=== PATIENT | male | born 1975 | race Caucasian/White ===

== ENCOUNTER 2016-07-13 06:43 | Inpatient (IN) | payer MEDICARE ==
[2016-07-02 16:30] LABS: WBC (NOT ORDERED) (RFLEX) 0 (0-5)
[2016-07-02 17:05] LABS: ASCORBIC ACID (UR NOT ORDER) 20 (NEG); BILIRUBIN, URINE NEGATIVE (NEG); KETONE, URINE NEGATIVE (NEG); LEUKOCYTE ESTERASE(NOT OR NEG (NEG)
[2016-07-02 17:11] LABS: BASOPHILS 0.2 %; BASOPHILS ABSOLUTE 0.01 10/3/uL (0.0-0.16); EOSINOPHILS 2.4 %; EOSINOPHILS ABSOLUTE 0.14 10/3/uL (0.0-0.53); HEMATOCRIT 44.9 % (40.0-51.0); HEMOGLOBIN 16.4 g/dL (13.6-17.8); IMMATURE GRANULOCYTES 0.3 %; IMMATURE GRANULOCYTES ABSOLUTE 0.02 10/3/uL (0.0-0.11); LYMPHOCYTES 42.9 %; LYMPHOCYTES ABSOLUTE 2.49 10/3/uL (0.67-4.30); MEAN CORPUS HGB CONC 36.5 g/dL (32.0-36.0); MEAN CORPUSCULAR HEMOGLOB 32.2 pg (26.0-34.0); MEAN CORPUSCULAR VOLUME 88.2 fL (80-100); MEAN PLATELET VOLUME 10.1 fL (9.2-13.0); MONOCYTES 7.7 %; MONOCYTES ABSOLUTE 0.45 10/3/uL (0.21-1.20); NEUTROPHILS 46.5 %; PLATELET COUNT 189 10/3/uL (150-400); RBC DISTRIBUTION WIDTH 12.9 % (12.0-16.0); RED CELL COUNT 5.09 10/6/uL (4.7-6.1); WHITE BLOOD CELLS 5.8 10/3/uL (4.5-10.5)
[2016-07-02 17:12] LABS: MANUAL DIFF NO %
[2016-07-02 17:19] LABS: INTERNATIONAL NORMAL RATI 1.2 UNITS (-); PROTIME (NOT ORD) 14.7 SEC (12.0-14.5)
[2016-07-02 17:43] LABS: % IRON SAT 30 % (20-50); A/G RATIO 1.6 (0.7-1.9); ALBUMIN 4.4 G/DL (3.5-5.0); ALKALINE PHOSPHATASE 80 U/L (45-117); BUN (BLOOD UREA NITROGEN) 16 MG/DL (6-23); CALCIUM, SERUM 9.2 MG/DL (8.5-10.4); CHLORIDE, SERUM 105 MMOL/L (96-112); CO2 (CARBON DIOXIDE) 29 MMOL/L (24-34); CREATININE 0.98 MG/DL (0.70-1.30); GFR AFRICAN AMERICAN 110 ML/MIN (>=60); GFR NON AFRICAN AMERICAN 95 ML/MIN (>=60); GLOBULIN 2.8 G/DL (2.5-4.1); GLUCOSE, SERUM 93 MG/DL (60-99); IRON BINDING CAPACITY 321 MCG/DL (250-450); IRON, SERUM 95 MCG/DL (35-150); SGOT(AST) 26 U/L (5-40); SGPT(ALT) 25 U/L (5-65); SODIUM, SERUM 142 MMOL/L (135-148); TOTAL BILIRUBIN 0.6 MG/DL (0-1.2); TOTAL PROTEIN 7.2 G/DL (6.0-8.5)
--- NOTE | ~2016-07-13 | OP ---
Record Of Operation [facility] [address] [place]. [address] NAME: EKVIN NORMAN : 73 STATUS : ADM IN PAT#: [id number] AGE: 41 ADM/REG DATE : 07/13/16 MR#: [id number] REPORT SERV DATE: 07/16/16 DICTATED BY: JOHN GARCIA DATE: 07/16/16 REPORT STATUS : Draft TRANSCRIBED BY: MODL DATE: 07/16/16 DATE OF PROCEDURE: 07/13/2016 PREOPERATIVE DIAGNOSES: 1. Aortic valve insufficiency with bicuspid aortic valve. 2. Ascending aortic aneurysm. 3. Autism. 4. Dilated cardiomyopathy. POSTOPERATIVE DIAGNOSES: 1. Aortic valve insufficiency with bicuspid aortic valve. 2. Ascending aortic aneurysm. 3. Autism. 4. Dilated cardiomyopathy. PROCEDURE PERFORMED: 1. Bentall procedure using a 29 mm Magna Ease pericardial valve and a 32 mm Valsalva Dacron graft. Reimplantation of coronaries. 2. Transesophageal echocardiography. SURGEON: John Garcia M.D. ASSISTANTS: Meme Pruett RN and CHAD Lizarraga. ANESTHESIA: General, Haider Gan M.D. FLYING SHEAR OPERATOR: Juliana Taylor M.D. INDICATIONS: This is a 41-year-old gentleman, who has a sociable form of autism. in dining area. He was seen by his primary care physician recently for mild fatigue symptoms and had a murmur that was noted. He underwent an echocardiogram that demonstrated significant aortic valve insufficiency with a bicuspid aortic valve and dilated ascending aorta. He was also noted to have mildly dilated left ventricle and atrium. LVEDP was elevated at 34. The patient underwent a cardiac catheterization, which did not demonstrate any significant coronary artery disease. We were asked to see the patient for possible aortic root and ascending aortic replacement for aneurysm and bicuspid insufficient valve. We discussed this operation at length with the patient and his family and after discussing the operations, indication, and risks, they wished to proceed. STS predicted risk of mortality for aortic valve replacement less than 1%, and morbidity mortality less than 10%. FINDINGS AT OPERATION: 1. Cross-clamp time 131 minutes, total pump time 151 minutes. 2. The aortic valve was bicuspid. There were 3 commissural post with fusion of the right and left coronary cusps. 3. Left main was large and was low lying in the sinus. The right coronary was nondominant Record Of Operation [facility] [address] [place]. [address] NAME: KEVIN NORMAN : 73 STATUS : ADM IN PAT#: [id number] AGE: 41 ADM/REG DATE : 07/13/16 MR#: [id number] REPORT SERV DATE: 07/16/16 DICTATED BY: JOHN GARCIA DATE: 07/16/16 REPORT STATUS : Draft TRANSCRIBED BY: MODL DATE: 07/16/16 and was high in the coronary sinus. 4. We used a composite graft including the 32 mm Gelweave Valsalva graft. The 29 mm pericardial Magna ease valve was placed into the Valsalva end of the graft and secured in place with a 5-0 Prolene suture. 5. We replaced the ascending aorta up to 1 cm proximal to the innominate artery takeoff. No circulatory arrest was performed. 6. Transesophageal echocardiography demonstrated good ventricular function with a dilated left ventricle. The aortic prosthesis was well seated without perivalvular leak at the end of the operation. There was mild mitral valve insufficiency noted at the conclusion of the procedure. PATHOLOGIC SPECIMENS: Include ascending aorta and aortic valve leaflets and aortic root. DESCRIPTION OF PROCEDURE: The patient was brought to the operating suite where general anesthesia was induced. Airway secured with an endotracheal tube. Lines secured by Anesthesia. Lynn catheter was placed. The patient's chest, abdomen, groin, and legs prepped with Hibiclens and ChloraPrep and draped with Ioban sterile sheets. JESUS probe was placed by Dr. Gan and examination carried out demonstrating significant ascending aortic dilatation with severely insufficient aortic valve that was bicuspid. Ventricular function appeared to be low normal with ejection fraction 45% to 50%. A midline sternal incision was made and the sternum opened with a saw. Lines were passed from the field for cardiopulmonary bypass and cleared of air. Heparin was administered by Anesthesia. The pericardium was opened from the innominate vein. The diaphragm was T'd and tacked to the side of the chest wall. Cannulation pursestring suture were placed in the ascending aorta within the arch and right atrium. Cannulation was carried out in routine manner. Two stage venous cannula was placed. When all was in readiness, the patient was placed on cardiopulmonary bypass. We dissected out the ascending aorta once this was completed, the aorta was crossclamped. Initial dose of cold blood cardioplegia solution was given in a combination of antegrade and directly down the coronary ostia with the hand-held administration set. We gave approximately a liter and half of Custodiol solution. During the first dose cardioplegia, an LV vent was placed through right superior pulmonary vein and directed into the left ventricle through the mitral valve and secured. Once the aorta was opened, inspection allowed us to see both right and left main coronary ostia and we completed initial and only dose of cardioplegia solution. Following the first dose of cardioplegia of the heart, the ascending aorta was transected at the level of the sinotubular junction. The aortic root was inspected with asymmetrical dilatation especially in the noncoronary sinus. The left main coronary ostia were low in the sinus. We then excised the aortic valve leaflets, they were heavily calcified, it was a bicuspid valve. The coronary sinuses were then excised and coronary buttons for the right and left main coronary ostia were preserved. After the annulus was debrided of all calcific material, the annulus and left ventricle were irrigated copiously with iced saline to remove any particulate matter. The valve was sized Record Of Operation [facility] [address] [facility] [place]. [address] NAME: KEVIN NORMAN : 73 STATUS : ADM IN PAT#: [id number] AGE: 41 ADM/REG DATE : 07/13/16 MR#: [id number] REPORT SERV DATE: 07/16/16 DICTATED BY: JOHN GARCIA DATE: 07/16/16 REPORT STATUS : Draft TRANSCRIBED BY: MODL DATE: 07/16/16 and a 29 mm Magna Ease pericardial valve was selected. We then selected a 32 mm Gelweave Valsalva graft. The pericardial valve was inserted into the Valsalva end of the graft and sewn into the Dacron material with a running suture of 5-0 Prolene. Next, interrupted pledgeted sutures 2-0 Tycron placed circumferentially about the aortic valve annulus with the pledgets on the ventricular side. The sutures were then passed through the Valsalva graft and the sewing cuff of the prosthetic valve. This was lowered into position and each sutures individually secured and divided using a Cor-Knot device. Valve appeared to be well seated. We then turned our attention towards the coronary buttons. The left main coronary button was addressed first. This was up to the left sinus of Valsalva on the graft. This area was excised using I cautery. The left coronary button was then sewn to the hole in the Valsalva graft with a running suture of 6-0 Prolene. This suture line was reinforced with Otilio felt. Then, the right coronary button was brought to the right coronary sinus portion of the Valsalva graft and matched up. This portion of the graft was excised using I-cautery. The right coronary button was then sewn to the Valsalva portion of the graft with a running suture of 6-0 Prolene, it was buttressed with a felt. Once this portion of the procedure was completed, the graft was distended with a senior care solution and demonstrated good filling of the right and left main coronary ostia with no external leaks from the sutures. The distal end of the ascending aorta was transected just proximal to the aortic cross clamp, which was about 1 to 2 cm proximal to the takeoff of the innominate artery. The 32 mm Dacron graft was trimmed and sewn in end-to-end fashion to the remaining portion of the ascending aorta with a running suture of 4-0 Prolene. This suture line was buttressed with another felt strip. The patient was placed in Trendelenburg and the ascending aorta and left ventricle de-aired. When this was accomplished, the aortic cross-clamp was removed. The heart was allowed to rest on cardiopulmonary bypass, but did resume a normal sinus rhythm eventually. Ventilations were begun. When the heart demonstrated good contractility, it was allowed to fill and eject. De-airing was monitored with JESUS. When deairing was completed, the LV vent was removed and these pursestring sutures tied. The patient was weaned from cardiopulmonary bypass with minimal inotropic support. The venous cannula was removed and these pursestring sutures tied. JESUS examination demonstrated good functioning ventricle. The aortic valve prosthesis was well seated without perivalvular leak. There was mild mitral insufficiency as seen at the beginning of the operation. Protamine was administered by Anesthesia and following a period of hemodynamic stability, the aortic cannula was removed and these pursestring sutures tied and reinforced. The patient continued to do well and chest irrigated copiously with saline. Meticulous Record Of Operation [facility] [id number] [facility] [place]. [address] NAME: KEVIN NORMAN : 73 STATUS : ADM IN PAT#: [id number] AGE: 41 ADM/REG DATE : 07/13/16 MR#: [id number] REPORT SERV DATE: 07/16/16 DICTATED BY: JOHN GARCIA DATE: 07/16/16 REPORT STATUS : Draft TRANSCRIBED BY: MODL DATE: 07/16/16 hemostasis was obtained. Hemasorb was placed along the cut edge of the sternum. Once hemostasis was assured, the pericardium was draped over the anterior surface of the heart and tacked into position. Chest tubes were placed and the sternum reapproximated with 8 sternal wires. The clavipectoral fascia and linea alba closed #1 Stratafix. The subcutaneous tissue was closed with Stratafix and the skin closed in subcuticular fashion. The patient tolerated the procedure well no complications. Sponge and needle counts were correct. DISPOSITION: The patient left intubated, sedated, and transported to the intensive care unit in stable condition. REGINE/GLENIS John Garcia M.D. / [id number] CC: Tejinder Dexter MD Lisa Gail Carkner, M.D.
--- NOTE | ~2016-07-13 | DS ---
Discharge Summary [facility] [address] [place]. [address] NAME: KEVIN NORMAN : 73 STATUS : DIS IN PAT#: [id number] AGE: 41 ADM/REG DATE : 07/13/16 MR#: [id number] REPORT SERV DATE: 08/12/16 DICTATED BY: JOHN GARCIA DATE: 08/11/16 REPORT STATUS : Draft TRANSCRIBED BY: MODBertha DATE: 08/11/16 Data Collection from hospitalization DISCHARGE DIAGNOSES: 1. Aortic valve insufficiency with bicuspid aortic valve, status post Bentall procedure. 2. Ascending aortic aneurysm. 3. Autism. 4. Dilated cardiomyopathy. CONSULTATION: Dr. Juliana Taylor. PROCEDURES PERFORMED: Bentall procedure using a 29 mm Magna Ease pericardial valve and 32 mm Valsalva-Dacron graft; reimplantation of coronaries; transesophageal echocardiography, 07/13/2016. PATHOLOGY: Aortic valve-fibrosis and multinodular calcifications, portion of aorta- atherosclerosis, minimal. MEDICATIONS: Vitamin C 1000 mg twice a day, aspirin 81 mg daily, Lipitor as instructed, BuSpar 10 mg twice a day, vitamin D 1000 units daily, Dovray 5/325 one to two tablets every four hours as needed, Jantoven 2.5 mg at bedtime. CONDITION AT DISCHARGE: Stable. DISPOSITION: The patient was discharged home on an 1800-calorie cardiac/diabetic diet with activities as instructed. He would follow up with Samir Emmanuel, 08/10/[address] Juliana Taylor, 08/10/2016. He would follow up at cardiac rehab, 08/04/2016. He would follow up at [facility] for an INR check, 07/20/2016 and at the [place] office for an echocardiogram, 07/30/2016. HOSPITAL COURSE: This is a 41-year-old man, who has a sociable form of autism. He had been seen by his primary care physician recently for mild fatigue symptoms and a murmur was noted. He had undergone an echocardiogram that demonstrated significant aortic valve insufficiency with a bicuspid aortic valve and dilated ascending aorta. He was also noted to have mildly dilated left ventricle and atrium. Left ventricular end-diastolic pressure was elevated at 34. He underwent a cardiac catheterization, which did not demonstrate any significant coronary artery disease. We had seen the patient regarding possible aortic root and ascending aortic replacement for aneurysm and bicuspid insufficient valve. Treatment options were discussed and it was elected to proceed with surgical intervention. He was admitted to the hospital at this time for further evaluation and treatment. Upon admission, he was taken to the operating room, where he underwent the above-mentioned procedure. He tolerated this well and there were no complications. On postop day #1, he was awake and alert. He was conversant. He did complain of pain. His incisions looked okay. He had no edema. He was seen by Dr. Juliana Taylor. He had no shortness of breath. His lungs were clear. He had no edema. White count was 8.1. On 07/15/2016, he said he was feeling better. His abdomen was soft and nontender. Pacing wires were intact. His current therapy continued. He had no chest pain. His pain was well controlled. Metoprolol was Discharge Summary [address] [address] NAME: KEVIN NORMAN : 73 STATUS : DIS IN PAT#: [id number] AGE: 41 ADM/REG DATE : 07/13/16 MR#: [id number] REPORT SERV DATE: 08/12/16 DICTATED BY: JOHN GARCIA DATE: 08/11/16 REPORT STATUS : Draft TRANSCRIBED BY: GLENIS DATE: 08/11/16 increased. Aspirin and atorvastatin were continued. It was felt that he would need anticoagulation for three months after pacing wires were pulled and the chest tube was out. On 07/16/2016, he felt well. He did have some dyspnea walking to the bathroom. White count was 12.8. Metoprolol, atorvastatin, and aspirin were continued. Jantoven was started. His chest tube was removed. Over the next couple of days, he continued to do well. Discharge planning was performed. He had some abdominal pain, which resolved. Blood pressure was well controlled. On 07/19/2016, he was in a sinus rhythm. He felt well. He had had a low- grade fever overnight, which resolved. He was alert and cooperative. Discharge instructions were given. Due to his improved and stable condition, he was discharged home with the above-stated instructions. Information collected by: Fiona Gee I submit the above information as my discharge summary. AMPARO/MODL John Garcia M.D. / [id number] CC: Tejinder Dexter MD Lisa Gail Carkner, M.D.
[~2016-07-13 06:43] MED LIST: BUSPAR10 PO; FISH OIL PO; MULTI VIT PO; VITAMIN D1000 UNI1 PO
[2016-07-13 14:33] LABS: BE (BASE EXCESS) -6.2 MEQ/L (0 +/- 2.5); CARBOXYHEMOGLOBIN 0.4 % (0-3); HCO3 (ACTUAL BICARBONATE) 19.2 MEQ/L (23-27); HEMOBLOGIN CONTENT 15.4 G/DL (14-18); INSTRUMENT SERIAL # 11843; METHEMOGLOBIN 0.7 % (0-3); MODE SIMV; O2 CONTENT 22.4 VOL% (18-24); OPERATOR ID 18642; PCO2 (CO2 TENSION) 38 MMHG (35-45); PO2 (O2 TENSION) 452 MMHG (79-93); PRESSURE SUPPORT 0 cm.H2O; SAMPLE Arterial; TIDAL VOLUME 700 ML; pH 7.32 (7.37-7.43)
[2016-07-13 14:44] LABS: HEMATOCRIT 40.5 % (40.0-51.0); HEMOGLOBIN 14.3 g/dL (13.6-17.8)
[2016-07-13 14:45] LABS: PLATELET COUNT 121 10/3/uL (150-400)
[2016-07-13 14:51] LABS: INTERNATIONAL NORMAL RATI 1.9 UNITS (-); PARTIAL THROMBO TIME 32.1 SEC (22.5-37.2)
[2016-07-13 14:52] LABS: PROTIME (NOT ORD) 21.4 SEC (12.0-14.5)
[2016-07-13 14:56] LABS: BUN (BLOOD UREA NITROGEN) 17 MG/DL (6-23); CHLORIDE, SERUM 110 MMOL/L (96-112); CREATININE 1.08 MG/DL (0.70-1.30); GFR AFRICAN AMERICAN 98 ML/MIN (>=60); GFR NON AFRICAN AMERICAN 84 ML/MIN (>=60); POTASSIUM, SERUM 4.7 MMOL/L (3.5-5.3); SODIUM, SERUM 139 MMOL/L (135-148)
[2016-07-13 15:00] LABS: CALCIUM, SERUM 7.7 MG/DL (8.5-10.4); CO2 (CARBON DIOXIDE) 22 MMOL/L (24-34); GLUCOSE, SERUM 165 MG/DL (60-99)
[2016-07-13 18:48] LABS: HEMATOCRIT 38.9 % (40.0-51.0)
[2016-07-13 18:48] LABS: CARBOXYHEMOGLOBIN 0.5 % (0-3); DEVICE NC; HEMOBLOGIN CONTENT 14.7 G/DL (14-18); INSTRUMENT SERIAL # 11843; METHEMOGLOBIN 0.6 % (0-3); O2 CONTENT 20.4 VOL% (18-24); OPERATOR ID 18642; PCO2 (CO2 TENSION) 42 MMHG (35-45); PO2 (O2 TENSION) 157 MMHG (79-93); SAMPLE Arterial; pH 7.31 (7.37-7.43)
[2016-07-13 18:57] LABS: POTASSIUM, SERUM 4.1 MMOL/L (3.5-5.3)
[2016-07-14 01:25] LABS: HEMATOCRIT 36.6 % (40.0-51.0); HEMOGLOBIN 13.3 g/dL (13.6-17.8)
[2016-07-14 01:34] LABS: POTASSIUM, SERUM 4.3 MMOL/L (3.5-5.3)
[2016-07-14 03:28] LABS: BASOPHILS 0 %; EOSINOPHILS 0 %; HEMATOCRIT 36.5 % (40.0-51.0); HEMOGLOBIN 13.1 g/dL (13.6-17.8); IMMATURE GRANULOCYTES 0.1 %; IMMATURE GRANULOCYTES ABSOLUTE 0.01 10/3/uL (0.0-0.11); LYMPHOCYTES 9.4 %; LYMPHOCYTES ABSOLUTE 0.76 10/3/uL (0.67-4.30); MEAN CORPUS HGB CONC 35.9 g/dL (32.0-36.0); MEAN CORPUSCULAR HEMOGLOB 31.9 pg (26.0-34.0); MEAN CORPUSCULAR VOLUME 88.8 fL (80-100); MEAN PLATELET VOLUME 9.6 fL (9.2-13.0); MONOCYTES 5.7 %; MONOCYTES ABSOLUTE 0.46 10/3/uL (0.21-1.20); NEUTROPHILS 84.8 %; NEUTROPHILS ABSOLUTE 6.83 10/3/uL (2.02-8.40); PLATELET COUNT 122 10/3/uL (150-400); RED CELL COUNT 4.11 10/6/uL (4.7-6.1); WHITE BLOOD CELLS 8.1 10/3/uL (4.5-10.5)
[2016-07-14 03:31] LABS: MANUAL DIFF NO %
[2016-07-14 03:34] LABS: INTERNATIONAL NORMAL RATI 1.5 UNITS (-); PROTIME (NOT ORD) 18.2 SEC (12.0-14.5)
[2016-07-14 03:43] LABS: BUN (BLOOD UREA NITROGEN) 19 MG/DL (6-23); CALCIUM, SERUM 8.3 MG/DL (8.5-10.4); CHLORIDE, SERUM 113 MMOL/L (96-112); CREATININE 0.87 MG/DL (0.70-1.30); GFR AFRICAN AMERICAN 123 ML/MIN (>=60); GFR NON AFRICAN AMERICAN 106 ML/MIN (>=60); GLUCOSE, SERUM 99 MG/DL (60-99); POTASSIUM, SERUM 4.2 MMOL/L (3.5-5.3)
[2016-07-14 03:46] LABS: CO2 (CARBON DIOXIDE) 27 MMOL/L (24-34); SODIUM, SERUM 146 MMOL/L (135-148)
[2016-07-14 13:12] LABS: HEMATOCRIT 36.9 % (40.0-51.0); HEMOGLOBIN 13.3 g/dL (13.6-17.8)
[2016-07-15 05:58] LABS: BASOPHILS 0 %; EOSINOPHILS 0 %; HEMATOCRIT 36.3 % (40.0-51.0); HEMOGLOBIN 13.2 g/dL (13.6-17.8); IMMATURE GRANULOCYTES 0.2 %; IMMATURE GRANULOCYTES ABSOLUTE 0.03 10/3/uL (0.0-0.11); LYMPHOCYTES ABSOLUTE 1.91 10/3/uL (0.67-4.30); MEAN CORPUS HGB CONC 36.4 g/dL (32.0-36.0); MEAN CORPUSCULAR HEMOGLOB 32.5 pg (26.0-34.0); MEAN CORPUSCULAR VOLUME 89.4 fL (80-100); MEAN PLATELET VOLUME 10.3 fL (9.2-13.0); MONOCYTES 9.4 %; NEUTROPHILS 75.4 %; NEUTROPHILS ABSOLUTE 9.61 10/3/uL (2.02-8.40); PLATELET COUNT 132 10/3/uL (150-400); RBC DISTRIBUTION WIDTH 13.1 % (12.0-16.0); RED CELL COUNT 4.06 10/6/uL (4.7-6.1)
[2016-07-15 06:02] LABS: MANUAL DIFF NO %; WHITE BLOOD CELLS 12.8 10/3/uL (4.5-10.5)
[2016-07-15 06:11] LABS: BUN (BLOOD UREA NITROGEN) 18 MG/DL (6-23); CALCIUM, SERUM 8.7 MG/DL (8.5-10.4); CHLORIDE, SERUM 100 MMOL/L (96-112); CO2 (CARBON DIOXIDE) 30 MMOL/L (24-34); CREATININE 0.83 MG/DL (0.70-1.30); GFR AFRICAN AMERICAN 126 ML/MIN (>=60); GFR NON AFRICAN AMERICAN 109 ML/MIN (>=60); GLUCOSE, SERUM 131 MG/DL (60-99); SODIUM, SERUM 137 MMOL/L (135-148)
[2016-07-16 07:04] LABS: BASOPHILS 0.1 %; BASOPHILS ABSOLUTE 0.01 10/3/uL (0.0-0.16); EOSINOPHILS 0.3 %; EOSINOPHILS ABSOLUTE 0.03 10/3/uL (0.0-0.53); HEMATOCRIT 38.3 % (40.0-51.0); HEMOGLOBIN 13.7 g/dL (13.6-17.8); IMMATURE GRANULOCYTES 0.2 %; IMMATURE GRANULOCYTES ABSOLUTE 0.02 10/3/uL (0.0-0.11); LYMPHOCYTES 19.1 %; LYMPHOCYTES ABSOLUTE 1.86 10/3/uL (0.67-4.30); MEAN CORPUS HGB CONC 35.8 g/dL (32.0-36.0); MEAN CORPUSCULAR HEMOGLOB 32.2 pg (26.0-34.0); MEAN CORPUSCULAR VOLUME 89.9 fL (80-100); MONOCYTES 9.8 %; MONOCYTES ABSOLUTE 0.96 10/3/uL (0.21-1.20); NEUTROPHILS 70.5 %; NEUTROPHILS ABSOLUTE 6.88 10/3/uL (2.02-8.40); PLATELET COUNT 138 10/3/uL (150-400); RED CELL COUNT 4.26 10/6/uL (4.7-6.1); WHITE BLOOD CELLS 9.8 10/3/uL (4.5-10.5)
[2016-07-16 07:06] LABS: MANUAL DIFF NO %
[2016-07-16 07:10] LABS: CALCIUM, SERUM 9.1 MG/DL (8.5-10.4); CHLORIDE, SERUM 100 MMOL/L (96-112); CO2 (CARBON DIOXIDE) 33 MMOL/L (24-34); CREATININE 0.82 MG/DL (0.70-1.30); GFR AFRICAN AMERICAN 126 ML/MIN (>=60); GFR NON AFRICAN AMERICAN 109 ML/MIN (>=60); GLUCOSE, SERUM 122 MG/DL (60-99); POTASSIUM, SERUM 3.8 MMOL/L (3.5-5.3); SODIUM, SERUM 137 MMOL/L (135-148)
[2016-07-16 07:12] LABS: BUN (BLOOD UREA NITROGEN) 13 MG/DL (6-23)
[2016-07-17 05:27] LABS: INTERNATIONAL NORMAL RATI 1.2 UNITS (-); PROTIME (NOT ORD) 15.2 SEC (12.0-14.5)
[2016-07-18 06:53] LABS: PROTIME (NOT ORD) 22.3 SEC (12.0-14.5)
[2016-07-19 05:54] LABS: BASOPHILS 0.3 %; BASOPHILS ABSOLUTE 0.03 10/3/uL (0.0-0.16); EOSINOPHILS ABSOLUTE 0.22 10/3/uL (0.0-0.53); HEMATOCRIT 38.7 % (40.0-51.0); HEMOGLOBIN 13.7 g/dL (13.6-17.8); IMMATURE GRANULOCYTES 1.8 %; LYMPHOCYTES 18.3 %; LYMPHOCYTES ABSOLUTE 1.99 10/3/uL (0.67-4.30); MEAN CORPUS HGB CONC 35.4 g/dL (32.0-36.0); MEAN CORPUSCULAR HEMOGLOB 31.5 pg (26.0-34.0); MEAN PLATELET VOLUME 9.7 fL (9.2-13.0); MONOCYTES 10.2 %; MONOCYTES ABSOLUTE 1.11 10/3/uL (0.21-1.20); NEUTROPHILS 67.4 %; NEUTROPHILS ABSOLUTE 7.34 10/3/uL (2.02-8.40); RBC DISTRIBUTION WIDTH 13.2 % (12.0-16.0); RED CELL COUNT 4.35 10/6/uL (4.7-6.1); WHITE BLOOD CELLS 10.9 10/3/uL (4.5-10.5)
[2016-07-19 05:56] LABS: MANUAL DIFF NO %; PLATELET COUNT 220 10/3/uL (150-400)
[2016-07-19 06:11] LABS: PROTIME (NOT ORD) 22.8 SEC (12.0-14.5)
[2016-07-19] MEDS ORDERED: ASAB PO (09:41)
[2016-07-19] MEDS ORDERED: VITC500 PO (09:41)
[2016-07-19] MEDS ORDERED: LIPITOR40 PO (09:42)
[2016-07-19] MEDS ORDERED: NORCO1 TA1 PO (09:42)
[2016-07-19] MEDS ORDERED: JANTOVEN3 MG PO (09:43)
== END 2016-07-19 13:03 | disposition home or self-care (01) | DRG 220 ==
LOC: SDC/OF 06:43 → CVICU 12:35 → 5NO 07-14 16:32
PROVIDERS: Internal Medicine; Thoracic Surgery (Cardiothoracic Vascular Surgery)
PROC: 02RF08Z Replacement of Aortic Valve with Zooplastic Tissue, Open Approach (ICD-10-PCS; principal; 2016-07-13 08:30)
PROC: 02RX0JZ Replacement of Thoracic Aorta, Ascending/Arch with Synthetic Substitute, Open Approach (ICD-10-PCS; 2016-07-13 08:30)
PROC: B246ZZ4 Ultrasonography of Right and Left Heart, Transesophageal (ICD-10-PCS; 2016-07-13 08:30)
DX: Q23.1 Congenital insufficiency of aortic valve (principal); F84.0 Autistic disorder; I42.0 Dilated cardiomyopathy; I71.2 Thoracic aortic aneurysm, without rupture; I10 Essential (primary) hypertension
CPT/HCPCS: 36415; 71010; 71020; 80048; 80053; 81001; 82330; 82803; 82805; 82947; 82962; 83036; 83540; 83550; 83735; 84132; 84295; 85014; 85018; 85025; 85049; 85347; 85610; 85730; 86850; 86900; 86901; 86920; 87641; 88305; 88311; 93005; 93312; 93320; 93325; 94002; 94640; 94660; 94770; A9270-GY; C1713; C1768; J0690; J1644; J2150; J2250; J2370; J2405; J2440; J2597; J2720; J2795; J2930; J3010; J3370; J3475; P9045

== ENCOUNTER 2016-07-30 19:59 | Inpatient (IN) | payer MEDICARE, OTHER ==
--- NOTE | ~2016-07-30 | DS ---
Discharge Summary [facility] [address] [place]. [address] NAME: KEVIN NORMAN : 73 STATUS : DIS IN PAT#: [id number] AGE: 41 ADM/REG DATE : 07/30/16 MR#: [id number] REPORT SERV DATE: 08/20/16 DICTATED BY: JOHN GARCIA DATE: 08/19/16 REPORT STATUS : Draft TRANSCRIBED BY: MODBertha DATE: 08/19/16 Data Collection from hospitalization DISCHARGE DIAGNOSES: 1. Typical atrial flutter. 2. Large pericardial effusion, status post pericardial window. 3. Autism spectrum disorder. 4. History of aortic root aneurysm. 5. Bicuspid aortic valve. 6. Aortic insufficiency. 7. Dilated cardiomyopathy with ejection fraction 50%. CONSULTATIONS: Christiano Guerrero MD PROCEDURES PERFORMED: Pericardial window with drainage of pericardial effusion - bloody, synchronous cardioversion, transesophageal echocardiography on 08/02/2016. MEDICATIONS: Vitamin C 500 mg daily, aspirin 81 mg daily, Lipitor 40 mg at bedtime, BuSpar 10 mg twice a day, vitamin D 1000 units daily, Home 5/325 one tablet twice a day as needed, Lopressor 50 mg twice a day, and Jantoven 3.5 mg every evening. CONDITION AT DISCHARGE: Stable. DISPOSITION: The patient was discharged home on a regular diet with activities as instructed. He would follow up with Samir Emmanuel on 09/16/[address] Juliana Taylor on 08/31/2016. He would follow up at the [facility] on 08/10/2016. HOSPITAL COURSE: This is a 41-year-old man who has a history of thoracic aortic aneurysm and aortic insufficiency. He is status post aortic root replacement/aortic valve replacement with reimplantation of coronary artery disease. The patient was seen by Dr. Christiano Guerrero regarding his pericardial effusion. The large pericardial effusion was found on a followup echocardiogram, this had been performed electively at [facility] on the day of this admission. This was apparently a new finding. There was no evidence of cardiac tamponade, however, the patient was found to be in atrial flutter. He was informed to present to the emergency room for further workup. He did complain of some atypical chest pain, but on further questioning, this seemed to simply be residual sternotomy pain. He said that he had no trouble breathing and that he felt good at this time. He was admitted to the hospital at this time for further evaluation and treatment. Upon admission, the effusion was felt to demonstrate fibrinous material consistent with an exudative process. Left ventricular ejection fraction was calculated at 45%. There was a stable aortic bioprosthetic valve with normal valve gradients and no significant regurgitation. Repeat echocardiogram was requested. This would be a limited study to evaluate for any progression of the patient's effusion. Given the presence of atrial flutter, Coumadin was continued. The patient's INR rate was subtherapeutic at this time. It was felt that bleeding was an unlikely cause of the effusion given the subtherapeutic INR and evidence of exudative process. The patient's home medication regimen for atrial flutter was continued. Should the patient not spontaneously convert, we would consider Discharge Summary [address] [place]. [address] NAME: KEVIN NORMAN : 73 STATUS : DIS IN PAT#: [id number] AGE: 41 ADM/REG DATE : 07/30/16 MR#: [id number] REPORT SERV DATE: 08/20/16 DICTATED BY: JOHN GARCIA DATE: 08/19/16 REPORT STATUS : Draft TRANSCRIBED BY: GLENIS DATE: 08/19/16 transesophageal echocardiography and DC cardioversion. The following day, an echocardiogram was performed. He had no chest pain or shortness of breath. Extra Coumadin was given that day for his subtherapeutic INR. Metoprolol was increased. Diltiazem drip was going to be started if necessary for heart rate greater than 120 beats per minute. INR level was 1.5. On 08/01/2016, he had no shortness of breath, dizziness, or chest pain. INR level was 1.7. He had no edema. There was no evidence of tamponade. It was felt that we may need to perform transesophageal echocardiogram and DC cardioversion. He had a moderate effusion on echo. INR level was stable at 1.7. He was going to be held n.p.o. Coumadin was held. He had his rate controlled in the 100s on metoprolol. On 08/02/2016, it was felt that the patient should undergo pericardial window, drainage of effusion and possible cardioversion. This was discussed with the patient and his family, and they wanted to proceed. He was taken to the operating room where he underwent the above-mentioned procedure. He tolerated this well, and there were no complications. On 08/03/2016, the patient was doing well. His drain remained in place. He was in a normal sinus rhythm at this time. Coumadin was going to be resumed. He was a little sore at the drain site, otherwise, he had no complaints. The following day, he felt well. Discharge planning was performed. He was going to be given some senna and Colace for constipation. His Coumadin was continued. The pericardial drain was removed. INR level was 1.9. He remained in a normal sinus rhythm. On 08/05/2016, he was in good spirits. His lungs were clear. His incisions looked okay. He had no edema. He remained afebrile. He had no chest pain or shortness of breath. Discharge instructions were given. Due to his improved and stable condition, he was discharged home with the above-stated instructions. Information collected by: Fiona Gee I submit the above information as my discharge summary. TG/MODL John Garcia M.D. / [id number] CC: MD Arcenio Barnett MD
--- NOTE | ~2016-07-30 | HP ---
History And Physical [address] [address] [facility] [place]. [address] NAME: KEVIN NORMAN : 73 STATUS : ADM IN [facility]#: [id number] AGE: 41 ADM/REG DATE : 07/30/16 MR#: [id number] REPORT SERV DATE: 07/31/16 DICTATED BY: JAVON GUERRERO DATE: 07/30/16 REPORT STATUS : Draft TRANSCRIBED BY: MODL DATE: 07/30/16 DATE OF ADMISSION: 07/30/2016 CARDIOLOGY ADMISSION HISTORY AND PHYSICAL IDENTIFYING DATA: The patient is a 41-year-old man with a history of thoracic aortic aneurysm and aortic insufficiency with status post aortic root replacement/aortic valve replacement with reimplantation of coronary arteries. CHIEF COMPLAINT: The patient is electively admitted after a large pericardial effusion was found on a followup echocardiogram. HISTORY OF PRESENT ILLNESS: Mr. Norman is a pleasant 41-year-old man who has an advanced autistic disorder. For this reason, he is unable to perform much in the way of usual history. The patient's family is present however and does provide some of the history. The patient apparently had an echocardiogram performed electively today at [facility]. A large circumferential pericardial effusion was noted. This is apparently a new finding. There is no evidence of cardiac tamponade, however, the patient was noted to be in atrial flutter. He was, therefore, informed to present to the emergency room for further workup. The patient was complaining of some atypical chest pain, though on further questioning, this seems to be simply residual sternotomy pain. The patient reports that he is having no trouble breathing and that he "feels good" at this time. The patient's surgery was performed on 07/16/2016. The patient, otherwise, has recovered without incident. PAST MEDICAL HISTORY: 1. Aortic root aneurysm. 2. Autism spectrum disorder. 3. Bicuspid aortic valve. 4. Aortic insufficiency. 5. Dilated cardiomyopathy with ejection fraction of 50%. PAST SURGICAL HISTORY: Significant for aortic root replacement and aortic valve replacement as noted above. The patient has no previous history of cardiac dysrhythmia. FAMILY HISTORY: The patient's father of myocardial infarction at age 50. The mother has a history of cardiac dysrhythmias, not otherwise specified. Family history is otherwise noncontributory. SOCIAL HISTORY: The patient has no significant history of tobacco, alcohol, or drug use. ALLERGIES: THE PATIENT HAS NO KNOWN MEDICATION ALLERGIES. HOME MEDICATIONS: 1. Vitamin C 500 mg p.o. daily. 2. Aspirin 81 mg p.o. daily. 3. Atorvastatin 40 mg p.o. at q.h.s. History And Physical [address] [address] NAME: KEVIN NORMAN : 73 STATUS : ADM IN PAT#: [id number] AGE: 41 ADM/REG DATE : 07/30/16 MR#: [id number] REPORT SERV DATE: 07/31/16 DICTATED BY: JAVON GUERRERO DATE: 07/30/16 REPORT STATUS : Draft TRANSCRIBED BY: GLENIS DATE: 07/30/16 4. BuSpar 10 mg p.o. twice daily. 5. Vitamin D 1000 units p.o. daily. 6. Hydrocodone/acetaminophen 5/325 mg one tablet twice daily as needed for pain. 7. Metoprolol tartrate 25 mg p.o. twice daily. 8. Coumadin 3 mg p.o. q.h.s. REVIEW OF SYSTEMS: The patient is unable to provide a meaningful review of systems. PHYSICAL EXAMINATION: VITAL SIGNS: Temperature is 99.2 degrees Fahrenheit, blood pressure is 132/74 mmHg, heart rate is 93 beats per minute and regularly irregular, respirations 16, and oxygen saturation is 95% on room air. GENERAL: The patient is a short white man who is in no acute distress. The patient is not grossly oriented or has limited ability to communicate effectively. However, he is otherwise alert and appropriate. EYES: PERRL, EOMI, clear conjunctiva. HEAD/MNT: NCAT with moist mucous membranes and grossly normal hard and soft palate. NECK: Supple with no obvious thyromegaly or lymphadenopathy CARDIOVASCULAR: There is a regularly irregular rhythm with a normal S1 and a physiologically split second heart sound. There is a grade 1-2/6 early peaking systolic murmur noted at the right upper sternal border. The jugular venous pressure is at the upper limit of normal at 7-8 cm. PULMONARY: Clear to auscultation bilaterally with no wheezing, rales, rhonchi or dullness percussion. ABDOMINAL: Soft, non-tender, non-distended with no hepatosplenomegaly noted. EXTREMITIES: No clubbing, cyanosis or edema. MUSCULOSKELETAL: Grossly normal strength and range of motion in all extremities INTEGUMENTARY: Skin appears intact with no bruises, wounds or active lesions noted NEURO/PSYC: Alert and oriented x3, with no dysarthria, facial droop or lateralizing weakness noted. DIAGNOSTIC DATA: 12-lead EKG: The 12-lead EKG shows atrial flutter with variable AV block. ECG criteria for LVH are present. There are nonspecific ST/T-wave abnormalities. Ventricular rate is 106 beats per minute. LABORATORY: White blood cell count is 7.0, hemoglobin 12, hematocrit 36, platelets 466. INR is 1.5. PTT is 41. Chemistry shows a sodium of 140, potassium 3.2, chloride is 105, CO2 28, BUN 11, creatinine 0.85, and glucose is 91. Troponin I 0.1 and total CK is 75. ASSESSMENT AND PLAN: 1. Pericardial effusion: The patient's echocardiogram report documents no echocardiographic evidence of pericardial effusion. The effusion demonstrates fibrinous material consistent with an exudative process. Left ventricular ejection fraction is calculated at 45%. There is a stable aortic bioprosthetic valve with normal valve gradients and no significant regurgitation. A repeat echocardiogram will be obtained tomorrow. This will be a limited study to evaluate for any progression of History And Physical [address] [address] NAME: KEVIN NORMAN : 73 STATUS : ADM IN [facility]#: [id number] AGE: 41 ADM/REG DATE : 07/30/16 MR#: [id number] REPORT SERV DATE: 07/31/16 DICTATED BY: JAVON GUERRERO DATE: 07/30/16 REPORT STATUS : Draft TRANSCRIBED BY: MODL DATE: 07/30/16 the patient's effusion. We will discuss this case with Thoracic Surgery. Given the presence of atrial flutter, I would prefer to continue Coumadin. The patient's INR at any rate is subtherapeutic at this time. I feel that bleeding is an unlikely cause of the effusion given the subtherapeutic INR and evidence of an exudative of process. We will discuss with Thoracic Surgery whether any further workup would be recommended. For now, the patient will be monitored clinically. He demonstrates no clinical or echocardiographic evidence of cardiac tamponade. 2. Atrial flutter: We will continue the patient's home medication regimen. Should the patient not spontaneously convert, we will consider transesophageal echocardiography and DC cardioversion on Tuesday. MICKIE/GLENIS Javon Guerrero MD / [id number] CC: MD Arcenio Barnett MD
--- NOTE | ~2016-07-30 | OP ---
Record Of Operation [facility] [address] [place]. [address] NAME: JOSE NORMAN : 73 STATUS : ADM IN PAT#: [id number] AGE: 41 ADM/REG DATE : 07/30/16 MR#: [id number] REPORT SERV DATE: 08/02/16 DICTATED BY: JOHN GARCIA DATE: 08/02/16 REPORT STATUS : Draft TRANSCRIBED BY: MODBertha DATE: 08/02/16 DATE OF PROCEDURE: 08/02/2016 PREOPERATIVE DIAGNOSES: 1. Large pericardial effusion after recent open heart surgery. 2. Atrial flutter. 3. History of autism. POSTOPERATIVE DIAGNOSES: 1. Large pericardial effusion after recent open heart surgery. 2. Atrial flutter. 3. History of autism. PROCEDURE PERFORMED: 1. Pericardial window with drainage of pericardial effusion, bloody. 2. Synchronous cardioversion. 3. Transesophageal echocardiography. UNDERWRITING SERVICE REPRESENTATIVE: David Dong. ANESTHESIA: General. ANESTHESIOLOGIST: Mp Lopez M.D. COUNTY DIRECTOR: Juliana Taylor M.D. INDICATIONS: Jose is a 41-year-old gentleman who has a social form of autism. He has been having increasing fatigue and underwent an evaluation demonstrating dilated ascending aorta and also heart murmur that showed significant aortic insufficiency. Cardiac catheterization did not demonstrate any coronary artery disease. Ventricular function was preserved. He underwent uncomplicated Bentall procedure on 07/16/2016 and did well. He was anticoagulated, as he had a tissue valve placed. He went home and returned with a large pericardial effusion, who had echocardiography done and confirming this. Plan was to discontinue his Coumadin and electively performed pericardial window. Unfortunately, the patient then developed atrial flutter and fib with some fast ventricular response. He was admitted to the hospital, anticoagulated, and we were notified about the patient on Tuesday evening. The patient went to Cardiology, and we saw the patient this morning. I talked with Dr. Taylor and felt the patient undergo pericardial window, drainage of effusion, and possible cardioversion. This was discussed with the patient and his family and they wished to proceed. FINDINGS: 1. About 400 mL of bloody pericardial effusion were removed. 2. Cardioversion was performed with 350 joules of energy in the sync mode. 3. JESUS demonstrated good ventricular function. There was no aortic insufficiency of the aortic valve and there was no left atrial clot seen in the left atrial appendage. Record Of Operation [facility] [address] [place]. [address] NAME: JOSE NORMAN : 73 STATUS : ADM IN PAT#: [id number] AGE: 41 ADM/REG DATE : 07/30/16 MR#: [id number] REPORT SERV DATE: 08/02/16 DICTATED BY: JOHN GARCIA DATE: 08/02/16 REPORT STATUS : Draft TRANSCRIBED BY: GLENIS DATE: 08/02/16 PATHOLOGIC SPECIMENS: Pericardial effusion. DESCRIPTION OF PROCEDURE: The patient was brought to the operating suite, where general anesthesia was induced. Airway was secured with an endotracheal tube. Lines were secured by Anesthesia. The patient's chest and abdomen were prepped with Hibiclens and ChloraPrep and draped with Ioban sterile sheets. Cardioversion external paddles were placed on the patient's chest. JESUS probe was placed by Dr. Lopez and examination was carried out. This demonstrated a large pericardial effusion that was circumferential. He also had a good ventricular function and aortic root replacement with a prosthetic aortic valve with no insufficiency. Left atrial appendage did not demonstrate any clot. Upper midline incision was performed through the lower portion of his sternal incision and carried onto the linea alba for several centimeters. This was carried through subcutaneous tissue and linea alba was divided in the midline up to the costal margin. Left costal margin was then elevated. We dissected behind the costal margin until we came upon the pericardium. Here, a small hole was made in the pericardium and a large amount of bloody fluid was removed. 400 mL was removed and some of this was sent for cultures. The pericardial space was then irrigated copiously with saline. Once it irrigated clear, a 19-mm Gonzales drain was placed in the posterior pericardial space and brought out through a separate stab incision. Then, the linea alba was closed in layers with StrataFix and StrataFix in the subcutaneous tissue and skin was closed in subcuticular fashion. During this procedure, the patient was cardioverted using 350 joules of energy in a synchronized mode. This was successful and the patient resumed a normal sinus rhythm. DISPOSITION: The patient was sent to the recovery room in stable condition, extubated. REGINE/GLENIS John Garcia M.D. / [id number] CC: Christiano Guerrero MD
[2016-07-30 17:38] LABS: BASOPHILS 0.1 %; BASOPHILS ABSOLUTE 0.01 10/3/uL (0.0-0.16); EOSINOPHILS 1.7 %; EOSINOPHILS ABSOLUTE 0.12 10/3/uL (0.0-0.53); ER CBC TAT 0 Hrs 10 Mins; HEMATOCRIT 35.7 % (40.0-51.0); HEMOGLOBIN 12.3 g/dL (13.6-17.8); IMMATURE GRANULOCYTES 0.3 %; IMMATURE GRANULOCYTES ABSOLUTE 0.02 10/3/uL (0.0-0.11); MEAN CORPUS HGB CONC 34.5 g/dL (32.0-36.0); MEAN CORPUSCULAR VOLUME 87.1 fL (80-100); MEAN PLATELET VOLUME 8.4 fL (9.2-13.0); MONOCYTES 6.4 %; MONOCYTES ABSOLUTE 0.45 10/3/uL (0.21-1.20); NEUTROPHILS 61.5 %; NEUTROPHILS ABSOLUTE 4.29 10/3/uL (2.02-8.40); RBC DISTRIBUTION WIDTH 12.9 % (12.0-16.0)
[2016-07-30 17:39] LABS: MANUAL DIFF NO %; PLATELET COUNT 466 10/3/uL (150-400)
[2016-07-30 17:45] LABS: INTERNATIONAL NORMAL RATI 1.5 UNITS (-)
[2016-07-30 17:46] LABS: PARTIAL THROMBO TIME 40.5 SEC (22.5-37.2); PROTIME (NOT ORD) 18.2 SEC (12.0-14.5)
[2016-07-30 17:51] LABS: BUN (BLOOD UREA NITROGEN) 11 MG/DL (6-23); CALCIUM, SERUM 8.8 MG/DL (8.5-10.4); CHLORIDE, SERUM 105 MMOL/L (96-112); CREATININE 0.85 MG/DL (0.70-1.30); GFR AFRICAN AMERICAN 125 ML/MIN (>=60); GFR NON AFRICAN AMERICAN 107 ML/MIN (>=60); POTASSIUM, SERUM 3.6 MMOL/L (3.5-5.3); SODIUM, SERUM 140 MMOL/L (135-148)
[2016-07-30 17:52] LABS: CO2 (CARBON DIOXIDE) 28 MMOL/L (24-34)
[2016-07-30 17:53] LABS: CHEST PAIN PROFILE TAT 0 Hrs 25 Mins; GLUCOSE, SERUM 91 MG/DL (60-99)
[2016-07-30 19:05] LABS: CPK 75 U/L (0-200)
[2016-07-30 19:06] LABS: CK-MB 0.8 NG/ML
[~2016-07-30 19:59] MED LIST changes: +ASAB PO; +JANTOVEN3 MG PO; +LIPITOR40 PO; +NORCO1 TA1 PO; +VITC500 PO
[2016-07-30] MEDS ORDERED: LOP25 PO (20:27)
[2016-07-31 06:56] LABS: BASOPHILS 0.1 %; BASOPHILS ABSOLUTE 0.01 10/3/uL (0.0-0.16); EOSINOPHILS 0.3 %; EOSINOPHILS ABSOLUTE 0.02 10/3/uL (0.0-0.53); HEMATOCRIT 33.5 % (40.0-51.0); HEMOGLOBIN 11.4 g/dL (13.6-17.8); IMMATURE GRANULOCYTES 0.3 %; IMMATURE GRANULOCYTES ABSOLUTE 0.02 10/3/uL (0.0-0.11); LYMPHOCYTES 17.7 %; LYMPHOCYTES ABSOLUTE 1.22 10/3/uL (0.67-4.30); MEAN CORPUSCULAR HEMOGLOB 29.5 pg (26.0-34.0); MEAN CORPUSCULAR VOLUME 86.6 fL (80-100); MEAN PLATELET VOLUME 8.5 fL (9.2-13.0); MONOCYTES ABSOLUTE 0.48 10/3/uL (0.21-1.20); NEUTROPHILS 74.6 %; NEUTROPHILS ABSOLUTE 5.15 10/3/uL (2.02-8.40); PLATELET COUNT 439 10/3/uL (150-400); RED CELL COUNT 3.87 10/6/uL (4.7-6.1); WHITE BLOOD CELLS 6.9 10/3/uL (4.5-10.5)
[2016-07-31 06:57] LABS: MANUAL DIFF NO %
[2016-07-31 07:05] LABS: BUN (BLOOD UREA NITROGEN) 8 MG/DL (6-23); CALCIUM, SERUM 8.7 MG/DL (8.5-10.4); CHLORIDE, SERUM 106 MMOL/L (96-112); CO2 (CARBON DIOXIDE) 29 MMOL/L (24-34); CREATININE 0.69 MG/DL (0.70-1.30); GFR AFRICAN AMERICAN 136 ML/MIN (>=60); GFR NON AFRICAN AMERICAN 117 ML/MIN (>=60); GLUCOSE, SERUM 100 MG/DL (60-99); POTASSIUM, SERUM 3.7 MMOL/L (3.5-5.3); SODIUM, SERUM 141 MMOL/L (135-148)
[2016-07-31 07:06] LABS: INTERNATIONAL NORMAL RATI 1.6 UNITS (-)
[2016-08-01 07:19] LABS: INTERNATIONAL NORMAL RATI 1.7 UNITS (-); PROTIME (NOT ORD) 20.1 SEC (12.0-14.5)
[2016-08-02 05:33] LABS: BASOPHILS 0.1 %; BASOPHILS ABSOLUTE 0.01 10/3/uL (0.0-0.16); EOSINOPHILS 1.5 %; HEMOGLOBIN 12.9 g/dL (13.6-17.8); IMMATURE GRANULOCYTES 0.3 %; IMMATURE GRANULOCYTES ABSOLUTE 0.02 10/3/uL (0.0-0.11); LYMPHOCYTES 24.9 %; MEAN CORPUS HGB CONC 34.4 g/dL (32.0-36.0); MEAN CORPUSCULAR HEMOGLOB 29.9 pg (26.0-34.0); MEAN PLATELET VOLUME 8.3 fL (9.2-13.0); MONOCYTES 6.6 %; MONOCYTES ABSOLUTE 0.45 10/3/uL (0.21-1.20); NEUTROPHILS 66.6 %; NEUTROPHILS ABSOLUTE 4.56 10/3/uL (2.02-8.40); PLATELET COUNT 443 10/3/uL (150-400); RBC DISTRIBUTION WIDTH 12.8 % (12.0-16.0); RED CELL COUNT 4.31 10/6/uL (4.7-6.1); WHITE BLOOD CELLS 6.8 10/3/uL (4.5-10.5)
[2016-08-02 05:42] LABS: INTERNATIONAL NORMAL RATI 1.7 UNITS (-); PROTIME (NOT ORD) 20.1 SEC (12.0-14.5)
[2016-08-02 05:44] LABS: HEMATOCRIT 37.5 % (40.0-51.0); MANUAL DIFF NO %
[2016-08-02 05:49] LABS: BUN (BLOOD UREA NITROGEN) 10 MG/DL (6-23); CALCIUM, SERUM 8.6 MG/DL (8.5-10.4); CHLORIDE, SERUM 106 MMOL/L (96-112); CO2 (CARBON DIOXIDE) 27 MMOL/L (24-34); CREATININE 0.81 MG/DL (0.70-1.30); GFR AFRICAN AMERICAN 127 ML/MIN (>=60); GFR NON AFRICAN AMERICAN 110 ML/MIN (>=60); GLUCOSE, SERUM 102 MG/DL (60-99); POTASSIUM, SERUM 3.9 MMOL/L (3.5-5.3); SODIUM, SERUM 139 MMOL/L (135-148)
[2016-08-03 05:42] LABS: BASOPHILS 0 %; EOSINOPHILS 0.1 %; EOSINOPHILS ABSOLUTE 0.01 10/3/uL (0.0-0.53); HEMATOCRIT 34.2 % (40.0-51.0); HEMOGLOBIN 11.5 g/dL (13.6-17.8); IMMATURE GRANULOCYTES 0.2 %; IMMATURE GRANULOCYTES ABSOLUTE 0.02 10/3/uL (0.0-0.11); LYMPHOCYTES 13.7 %; MEAN CORPUS HGB CONC 33.6 g/dL (32.0-36.0); MEAN CORPUSCULAR HEMOGLOB 29.4 pg (26.0-34.0); MEAN CORPUSCULAR VOLUME 87.5 fL (80-100); MEAN PLATELET VOLUME 8.3 fL (9.2-13.0); MONOCYTES 7.5 %; NEUTROPHILS 78.5 %; NEUTROPHILS ABSOLUTE 6.29 10/3/uL (2.02-8.40); PLATELET COUNT 387 10/3/uL (150-400); RBC DISTRIBUTION WIDTH 13.1 % (12.0-16.0); RED CELL COUNT 3.91 10/6/uL (4.7-6.1)
[2016-08-03 05:44] LABS: MANUAL DIFF NO %
[2016-08-03 05:45] LABS: PROTIME (NOT ORD) 22.4 SEC (12.0-14.5)
[2016-08-03 05:55] LABS: BUN (BLOOD UREA NITROGEN) 10 MG/DL (6-23); CALCIUM, SERUM 8.6 MG/DL (8.5-10.4); CHLORIDE, SERUM 106 MMOL/L (96-112); CO2 (CARBON DIOXIDE) 29 MMOL/L (24-34); CREATININE 0.76 MG/DL (0.70-1.30); GFR AFRICAN AMERICAN 130 ML/MIN (>=60); GFR NON AFRICAN AMERICAN 113 ML/MIN (>=60); GLUCOSE, SERUM 112 MG/DL (60-99); POTASSIUM, SERUM 4.1 MMOL/L (3.5-5.3); SODIUM, SERUM 140 MMOL/L (135-148)
[2016-08-04 05:52] LABS: BASOPHILS 0.2 %; BASOPHILS ABSOLUTE 0.01 10/3/uL (0.0-0.16); EOSINOPHILS ABSOLUTE 0.13 10/3/uL (0.0-0.53); HEMATOCRIT 35.3 % (40.0-51.0); HEMOGLOBIN 12.1 g/dL (13.6-17.8); IMMATURE GRANULOCYTES 0.2 %; IMMATURE GRANULOCYTES ABSOLUTE 0.01 10/3/uL (0.0-0.11); LYMPHOCYTES 26.1 %; LYMPHOCYTES ABSOLUTE 1.66 10/3/uL (0.67-4.30); MANUAL DIFF NO %; MEAN CORPUS HGB CONC 34.3 g/dL (32.0-36.0); MEAN CORPUSCULAR HEMOGLOB 29.9 pg (26.0-34.0); MEAN CORPUSCULAR VOLUME 87.2 fL (80-100); MEAN PLATELET VOLUME 8.3 fL (9.2-13.0); MONOCYTES 7.1 %; MONOCYTES ABSOLUTE 0.45 10/3/uL (0.21-1.20); NEUTROPHILS 64.4 %; NEUTROPHILS ABSOLUTE 4.09 10/3/uL (2.02-8.40); PLATELET COUNT 386 10/3/uL (150-400); RBC DISTRIBUTION WIDTH 13.1 % (12.0-16.0); RED CELL COUNT 4.05 10/6/uL (4.7-6.1); WHITE BLOOD CELLS 6.4 10/3/uL (4.5-10.5)
[2016-08-04 05:57] LABS: INTERNATIONAL NORMAL RATI 1.9 UNITS (-); PROTIME (NOT ORD) 21.7 SEC (12.0-14.5)
[2016-08-04 06:12] LABS: BUN (BLOOD UREA NITROGEN) 11 MG/DL (6-23); CALCIUM, SERUM 8.9 MG/DL (8.5-10.4); CHLORIDE, SERUM 102 MMOL/L (96-112); CO2 (CARBON DIOXIDE) 27 MMOL/L (24-34); CREATININE 0.85 MG/DL (0.70-1.30); GFR AFRICAN AMERICAN 125 ML/MIN (>=60); GFR NON AFRICAN AMERICAN 107 ML/MIN (>=60); GLUCOSE, SERUM 111 MG/DL (60-99); POTASSIUM, SERUM 3.5 MMOL/L (3.5-5.3); SODIUM, SERUM 138 MMOL/L (135-148)
[2016-08-05 04:37] LABS: BASOPHILS 0.2 %; BASOPHILS ABSOLUTE 0.01 10/3/uL (0.0-0.16); EOSINOPHILS 3.1 %; EOSINOPHILS ABSOLUTE 0.16 10/3/uL (0.0-0.53); HEMOGLOBIN 12.5 g/dL (13.6-17.8); IMMATURE GRANULOCYTES 0.6 %; IMMATURE GRANULOCYTES ABSOLUTE 0.03 10/3/uL (0.0-0.11); LYMPHOCYTES 31.1 %; LYMPHOCYTES ABSOLUTE 1.61 10/3/uL (0.67-4.30); MEAN CORPUS HGB CONC 33.8 g/dL (32.0-36.0); MEAN CORPUSCULAR HEMOGLOB 29.9 pg (26.0-34.0); MEAN CORPUSCULAR VOLUME 88.5 fL (80-100); MEAN PLATELET VOLUME 8.7 fL (9.2-13.0); MONOCYTES 8.7 %; MONOCYTES ABSOLUTE 0.45 10/3/uL (0.21-1.20); NEUTROPHILS 56.3 %; NEUTROPHILS ABSOLUTE 2.92 10/3/uL (2.02-8.40); PLATELET COUNT 401 10/3/uL (150-400); RBC DISTRIBUTION WIDTH 13.2 % (12.0-16.0); RED CELL COUNT 4.18 10/6/uL (4.7-6.1); WHITE BLOOD CELLS 5.2 10/3/uL (4.5-10.5)
[2016-08-05 04:42] LABS: MANUAL DIFF NO %
[2016-08-05 04:45] LABS: INTERNATIONAL NORMAL RATI 1.6 UNITS (-); PROTIME (NOT ORD) 19.1 SEC (12.0-14.5)
[2016-08-05 06:10] LABS: BUN (BLOOD UREA NITROGEN) 9 MG/DL (6-23); CALCIUM, SERUM 8.7 MG/DL (8.5-10.4); CHLORIDE, SERUM 104 MMOL/L (96-112); CO2 (CARBON DIOXIDE) 27 MMOL/L (24-34); GFR AFRICAN AMERICAN 128 ML/MIN (>=60); GFR NON AFRICAN AMERICAN 110 ML/MIN (>=60); GLUCOSE, SERUM 96 MG/DL (60-99); POTASSIUM, SERUM 3.8 MMOL/L (3.5-5.3); SODIUM, SERUM 141 MMOL/L (135-148)
[2016-08-05] MEDS ORDERED: LOP50 PO (12:47)
[2016-08-05] MEDS ORDERED: JANTOVEN3 MG PO (12:49)
== END 2016-08-05 13:08 | disposition home or self-care (01) | DRG 271 ==
LOC: ER 19:59 → 6NO 21:16 → SDC/OF 08-02 16:18 → PACU 08-02 16:42 → 5NO 08-02 17:28
PROVIDERS: Hospitalist; Internal Medicine Cardiovascular Disease; Nurse Practitioner Adult Health; Thoracic Surgery (Cardiothoracic Vascular Surgery)
PROC: 0W9D00Z Drainage of Pericardial Cavity with Drainage Device, Open Approach (ICD-10-PCS; principal; 2016-08-02 15:45)
DX: I31.3 Pericardial effusion (noninflammatory) (principal); F84.0 Autistic disorder; I42.0 Dilated cardiomyopathy; I48.92 Unspecified atrial flutter; J98.11 Atelectasis; Z79.01 Long term (current) use of anticoagulants; K59.00 Constipation, unspecified; Z79.82 Long term (current) use of aspirin; Z95.2 Presence of prosthetic heart valve; I35.1 Nonrheumatic aortic (valve) insufficiency
CPT/HCPCS: 71020; 80048; 82550; 82553; 82962; 83735; 84484; 85025; 85610; 85730; 87015; 87070; 87075; 87102; 87116; 87205; 87206; 93005; 93306; 93308; 93312; 93320; 93321; 93325; 94640; 96365; 99285; A9270-GY; J0690; J2250; J2270; J2370; J2405; J2710; J2795; J3010